=== PATIENT | male | born 1965 | race Caucasian/White ===

== ENCOUNTER 2017-01-12 14:31 | Inpatient (IN) ==
[2017-01-12] MEDS ORDERED: 0.9 % Sodium Chloride 1,000 ML IVC ONE (15:06)
[2017-01-12] MEDS ORDERED: *HR* Morphine 2 MG/ML SYRINGE IVP ONE (15:06)
[2017-01-12] MEDS ORDERED: Ondansetron 4 MG/2 ML VIAL IVP ONE (15:06)
[2017-01-12 15:27] LABS: Basophils # 0.1 K/mcL (0.0-0.2); Basophils % 0.3 %; Eosinophils % 0.1 %; Hematocrit 34.3 % (37.5-50.1); Hemoglobin 11.4 g/dL (12.9-16.9); Immature Granulocytes % 0.4 % (0-4); Lymphocytes # 1.6 K/mcL (0.6-4.6); Lymphocytes % 7.1 %; Mean Corpuscular HGB Conc 33.2 g/dL (31.6-35.5); Mean Corpuscular Hemoglobin 29.4 pg (28.0-33.3); Mean Corpuscular Volume 88.4 fL (83.0-100.0); Mean Platelet Volume 8.6 fL (9.4-12.4); Monocytes # 1.4 K/mcL (0.0-1.3); Monocytes % 6.1 %; Neutrophils # 19.4 K/mcL (1.6-8.9); Platelet Count 479 K/mcL (140-400); Red Blood Count 3.88 M/mcL (4.19-5.50); Red Cell Distribution Width 13.5 % (11.5-14.5)
[2017-01-12 15:36] LABS: Alanine Aminotransferase 10 Units/L (0-55); Albumin 2.4 g/dL (3.5-5.0); Albumin/Globulin Ratio 0.4 (1.1-2.2); Alkaline Phosphatase 94 Units/L (38-126); Aspartate Amino Transferase 20 Units/L (5-34); BUN/Creatinine Ratio 8 (6-26); Bilirubin,Direct 0.3 mg/dL (0.0-0.5); Bilirubin,Indirect 0.1 mg/dL (0.0-1.2); Bilirubin,Total 0.4 mg/dL (0.2-1.2); Blood Urea Nitrogen 6 mg/dL (8-26); Calcium 8.8 mg/dL (8.6-10.8); Carbon Dioxide 26 mEq/L (19-29); Chloride 97 mEq/L (98-109); Globulin 5.4 g/dL (2.4-3.5); Glucose 96 mg/dL (70-99); Osmolality,Calculated 269 (280-300); Potassium 3.8 mEq/L (3.5-4.5); Sodium 131 mEq/L (136-145); Total Protein 7.8 g/dL (6.0-8.3); eGFR For African Americans > 60 (> 60); eGFR For Non-African Americans > 60 (> 60)
[2017-01-12 15:45] LABS: Lipase < 10 Units/L (8-78)
[2017-01-12] MEDS ORDERED: Azithromycin 500 MG in D5% in Water 250 ML IVPB ONE (15:49)
--- NOTE | 2017-01-12 15:49 | Emergency Department Note ---
Disposition Clinical Impression: Community acquired pneumonia Sepsis Qualifiers: Sepsis type: sepsis due to unspecified organism Qualified Code(s): A41.9 - Sepsis, unspecified organism Disposition: Admitted As Inpatient Condition: Good Time of Disposition: 16:00 Abdominal Pain HPI - General Chief Complaint: ED Abdominal Pain Stated Complaint: ABD Pain Time Seen by Provider: 01/12/17 14:51 Source: patient, family Mode of arrival: ambulatory Limitations: no limitations Nursing Notes Reviewed: Yes Vital Signs Reviewed: Yes - History of Present Illness HPI Narrative: 51-year-old male presents with concerns of right lateral chest pain and right upper quadrant abdominal pain. Patient states his symptoms have progressively worsened over the past 3 days. No history of similar pain. Family is concerned the patient became increasingly fatigued over the past 2-3 hours prior to arrival. He had a headache with nausea and vomiting yesterday however he has not had vomiting today. Denied bloody or bilious emesis at that time. No diarrhea or hematochezia or melena. No recent trauma. Pain Scale: 10 - Related Data Home Medications Medication Instructions Recorded Confirmed No Known Home Drugs 09/15/15 01/12/17 Allergies Allergy/AdvReac Type Severity Reaction Status Date / Time No Known Allergies Allergy Verified 01/12/17 14:46 All systems ED: reviewed and negative except as stated. Constitutional: Denies: fever, chills, weakness Cardiovascular: Reports: chest pain. Denies: palpitations Respiratory: Reports: cough, dyspnea. Denies: wheezes Gastrointestinal: Reports: abdominal pain, nausea, vomiting. Denies: diarrhea, constipation, hematemesis Abdominal Pain PMH - Past Medical History Medical history: Reports: no medical history Male Surgical History: Reports: orthopedic, other Psychiatric history: Reports: no psych history - Social History Smoking status: Current every day smoker Alcohol use: Reports: none Drug use: Reports: none Physical Exam General: Alert and in no acute distress Skin: Warm, dry, intact Head: Normocephalic and atraumatic Neck: Supple, trachea midline and no tenderness Cardiovascular: Tachycardic, no murmur, normal perfusion Respiratory: Mild rhonchi in the right lower lobes. 2. Musculoskeletal: Normal strength, tenderness to palpation of the right lateral chest as well as the right upper quadrant of the abdomen. GI: Soft, nontender, nondistended. Bowel sounds present Neuro: A&O to person, place, time and situation. No focal deficits noted on exam Psychiatric: cooperative and appropriate mood and affect. - General Limitations: no limitations General appearance: alert Course Vital Signs Temperature 98.8 F 01/12/17 14:44 Pulse Rate 122 01/12/17 14:44 Respiratory Rate 20 01/12/17 14:44 Blood Pressure 152/105 01/12/17 14:44 O2 Sat by Pulse Oximetry 97 01/12/17 14:44 Temperature 98 F 01/12/17 20:04 Pulse Rate 100 01/12/17 20:04 Respiratory Rate 32 01/12/17 20:04 Blood Pressure 138/95 01/12/17 20:04 O2 Sat by Pulse Oximetry 95 01/12/17 20:04 Oxygen Delivery Oxygen Delivery Room Air Abdominal Pain - Medical Records Medical records reviewed: Yes I reviewed the patient's medical records. - Lab Data Lab results reviewed: Yes I reviewed the patient's lab results. Result diagrams: 01/12/17 18:55 01/12/17 15:09 Lab Results 01/12/17 01/12/17 01/12/17 Range/Units 15:09 15:09 15:09 WBC 22.6 H (4.3-11.1) K/mcL RBC 3.88 L (4.19-5.50) M/mcL Hgb 11.4 L (12.9-16.9) g/dL Hct 34.3 L (37.5-50.1) % MCV 88.4 (83.0-100.0) fL MCH 29.4 (28.0-33.3) pg MCHC 33.2 (31.6-35.5) g/dL RDW 13.5 (11.5-14.5) % Plt Count 479 H (140-400) K/mcL MPV 8.6 L (9.4-12.4) fL Immature Gran % 0.4 (0-4) % Seg Neutrophils % 86.0 % Lymphocytes % 7.1 % Monocytes % 6.1 % Eosinophils % 0.1 % Basophils % 0.3 % Neutrophils # 19.4 H (1.6-8.9) K/mcL Lymphocytes # 1.6 (0.6-4.6) K/mcL Monocytes # 1.4 H (0.0-1.3) K/mcL Eosinophils # 0.0 (0.0-0.6) K/mcL Basophils # 0.1 (0.0-0.2) K/mcL PT (9.4-12.1) Seconds INR APTT (26.0-36.0) Seconds Sodium (136-145) mEq/L Potassium (3.5-4.5) mEq/L Chloride (98-109) mEq/L Carbon Dioxide (19-29) mEq/L BUN (8-26) mg/dL Creatinine (0.72-1.25) mg/dL Est GFR ( Amer) (> 60) Est GFR (Non-Af Amer) (> 60) BUN/Creatinine Ratio (6-26) Glucose (70-99) mg/dL Calculated Osmolality (280-300) Lactic Acid 1.0 (0.5-2.2) mmol/L Calcium (8.6-10.8) mg/dL Phosphorus (2.3-4.7) mg/dL Magnesium (1.6-2.6) mg/dL Total Bilirubin (0.2-1.2) mg/dL Direct Bilirubin (0.0-0.5) mg/dL Indirect Bilirubin (0.0-1.2) mg/dL AST (5-34) Units/L ALT (0-55) Units/L Alkaline Phosphatase (38-126) Units/L Troponin I 0.00 (0-0.03) ng/mL Serum Total Protein (6.0-8.3) g/dL Albumin (3.5-5.0) g/dL Globulin (2.4-3.5) g/dL Albumin/Globulin Ratio (1.1-2.2) Lipase (8-78) Units/L Hepatitis A IgM Ab (Nonreactive) Hep Bs Antigen (Nonreactive) Hep B Core IgM Ab (Nonreactive) Hepatitis C Ab Screen (Nonreactive) 01/12/17 01/12/17 01/12/17 Range/Units 15:09 15:09 16:15 WBC (4.3-11.1) K/mcL RBC (4.19-5.50) M/mcL Hgb (12.9-16.9) g/dL Hct (37.5-50.1) % MCV (83.0-100.0) fL MCH (28.0-33.3) pg MCHC (31.6-35.5) g/dL RDW (11.5-14.5) % Plt Count (140-400) K/mcL MPV (9.4-12.4) fL Immature Gran % (0-4) % Seg Neutrophils % % Lymphocytes % % Monocytes % % Eosinophils % % Basophils % % Neutrophils # (1.6-8.9) K/mcL Lymphocytes # (0.6-4.6) K/mcL Monocytes # (0.0-1.3) K/mcL Eosinophils # (0.0-0.6) K/mcL Basophils # (0.0-0.2) K/mcL PT 13.9 H (9.4-12.1) Seconds INR 1.3 APTT 30.3 (26.0-36.0) Seconds Sodium 131 L (136-145) mEq/L Potassium 3.8 (3.5-4.5) mEq/L Chloride 97 L (98-109) mEq/L Carbon Dioxide 26 (19-29) mEq/L BUN 6 L (8-26) mg/dL Creatinine 0.72 (0.72-1.25) mg/dL Est GFR ( Amer) > 60 (> 60) Est GFR (Non-Af Amer) > 60 (> 60) BUN/Creatinine Ratio 8 (6-26) Glucose 96 (70-99) mg/dL Calculated Osmolality 269 L (280-300) Lactic Acid (0.5-2.2) mmol/L Calcium 8.8 (8.6-10.8) mg/dL Phosphorus (2.3-4.7) mg/dL Magnesium (1.6-2.6) mg/dL Total Bilirubin 0.4 (0.2-1.2) mg/dL Direct Bilirubin 0.3 (0.0-0.5) mg/dL Indirect Bilirubin 0.1 (0.0-1.2) mg/dL AST 20 (5-34) Units/L ALT 10 (0-55) Units/L Alkaline Phosphatase 94 (38-126) Units/L Troponin I (0-0.03) ng/mL Serum Total Protein 7.8 (6.0-8.3) g/dL Albumin 2.4 L (3.5-5.0) g/dL Globulin 5.4 H (2.4-3.5) g/dL Albumin/Globulin Ratio 0.4 L (1.1-2.2) Lipase < 10 (8-78) Units/L Hepatitis A IgM Ab Nonreactive (Nonreactive) Hep Bs Antigen Nonreactive (Nonreactive) Hep B Core IgM Ab Nonreactive (Nonreactive) Hepatitis C Ab Screen Nonreactive (Nonreactive) 01/12/17 01/12/17 Range/Units 16:24 16:24 WBC (4.3-11.1) K/mcL RBC (4.19-5.50) M/mcL Hgb (12.9-16.9) g/dL Hct (37.5-50.1) % MCV (83.0-100.0) fL MCH (28.0-33.3) pg MCHC (31.6-35.5) g/dL RDW (11.5-14.5) % Plt Count (140-400) K/mcL MPV (9.4-12.4) fL Immature Gran % (0-4) % Seg Neutrophils % % Lymphocytes % % Monocytes % % Eosinophils % % Basophils % % Neutrophils # (1.6-8.9) K/mcL Lymphocytes # (0.6-4.6) K/mcL Monocytes # (0.0-1.3) K/mcL Eosinophils # (0.0-0.6) K/mcL Basophils # (0.0-0.2) K/mcL PT (9.4-12.1) Seconds INR APTT (26.0-36.0) Seconds Sodium (136-145) mEq/L Potassium (3.5-4.5) mEq/L Chloride (98-109) mEq/L Carbon Dioxide (19-29) mEq/L BUN (8-26) mg/dL Creatinine (0.72-1.25) mg/dL Est GFR ( Amer) (> 60) Est GFR (Non-Af Amer) (> 60) BUN/Creatinine Ratio (6-26) Glucose (70-99) mg/dL Calculated Osmolality (280-300) Lactic Acid 0.8 (0.5-2.2) mmol/L Calcium (8.6-10.8) mg/dL Phosphorus 3.2 (2.3-4.7) mg/dL Magnesium 1.5 L (1.6-2.6) mg/dL Total Bilirubin (0.2-1.2) mg/dL Direct Bilirubin (0.0-0.5) mg/dL Indirect Bilirubin (0.0-1.2) mg/dL AST (5-34) Units/L ALT (0-55) Units/L Alkaline Phosphatase (38-126) Units/L Troponin I (0-0.03) ng/mL Serum Total Protein (6.0-8.3) g/dL Albumin (3.5-5.0) g/dL Globulin (2.4-3.5) g/dL Albumin/Globulin Ratio (1.1-2.2) Lipase (8-78) Units/L Hepatitis A IgM Ab (Nonreactive) Hep Bs Antigen (Nonreactive) Hep B Core IgM Ab (Nonreactive) Hepatitis C Ab Screen (Nonreactive) - Radiology Data Radiology results reviewed: Yes I reviewed the patient's radiology results. - EKG Data EKG attestation: Yes I reviewed and interpreted this EKG. EKG results narrative: ECG - interpreted by ED physician. Rate 104 sinus tachycardia, no STEMI Critical Care Time Critical Care Time: Yes Total Critical Care Time: 36 Attestation: The high probability of a clinically significant, sudden or life threatening deterioration of the cardiovascular and respiratory system(s) required my full and direct attention, intervention and personal management. The aggregate critical care time was 36 minutes. This time is in addition to time spent performing reported procedures but includes the following: x Data Review and interpretation x Patient assessment and monitoring of vital signs x Documentation x Medication orders and management
[2017-01-12] MEDS: 0.9 % Sodium Chloride 1,000 ML IVC SCH ×3 (16:20→18:21)
[2017-01-12] MEDS ORDERED: Naloxone 0.4 MG/ML INJ IVP PRN (16:37)
[2017-01-12] MEDS ORDERED: Acetaminophen 325 MG TABLET PO PRN (16:37)
[2017-01-12] MEDS ORDERED: Ondansetron 4 MG/2 ML VIAL IVP PRN (16:37)
[2017-01-12] MEDS ORDERED: *HR* Morphine 2 MG/ML SYRINGE IVP PRN (16:37)
[2017-01-12 16:45] LABS: Magnesium 1.5 mg/dL (1.6-2.6); Phosphorous 3.2 mg/dL (2.3-4.7)
--- NOTE | 2017-01-12 17:06 | Internal Med History&Physical ---
<aCchorro Sullivan - Last Filed: 01/12/17 17:50> Date of Encounter: 01/12/17 Time of Encounter: 16:00 Assessment and Plan (1) Sepsis Current visit: Yes Status: Acute Patient presents with sepsis. His WBC is 22.6 on initial labs and HR is tachycardic at 120 bpm. 2L IV fluids administered in the ED with continuation at 125 mL/HR. Blood/sputum/urine cultures ordered stat. Legionella/strep pneumoniae urine antigens ordered stat. Timed lactic acids ordered (initial lactic acid is 1.0). Stat INR and APTT ordered. Continuous cardiac telemetry and supplemental O2 with continuous SpO2 monitoring ordered. Patient's current oral temp is 98.8, however patient's abdomen is very warm and tender on examination. Rectal temp ordered. Follow-up labs ordered and patient is to be monitored closely for signs of increased infection or cardiac/respiratory decline or distress. Qualifiers: Sepsis type: sepsis due to unspecified organism Qualified Code(s): A41.9 - Sepsis, unspecified organism (2) Community acquired pneumonia Current visit: Yes Status: Acute Patient presents with suspected community acquired pneumonia. 2-View CXR of the chest dated today shows bilateral lower lobe airspace opacifications with a possible right-sided pleural effusion or pleural thickening. Multi-lobar pneumonia could give this appearance. A malignancy also needs to be considered. Blood/sputum/urine cultures ordered. Will continue IV ceftriaxone and azithromycin for infection coverage. Will monitor follow-up labs for infection resolution. (3) SOB (shortness of breath) Current visit: Yes Status: Acute Patient presents with dyspnea and tachypnea related to his current pain and infection status. Supplemental O2 with titration if SpO2 <92% and continuous SpO2 monitoring ordered. DuoNebs ordered Q4. Patient to be falls precautions/up with assist/bed rest with bathroom privileges with assist only due to current SOB and weakness. Will monitor patient and vital signs. (4) Abdominal pain Current visit: Yes Status: Acute Patient presents with abdominal pain in RUQ that he states has been occurring for the past three days but became worse over the past 24 hours. RUQ is tender and warm on examination. Stat CT of the abdomen/pelvis ordered. LFTs within normal range. Hepatitis panel ordered. Qualifiers: Abdominal location: right upper quadrant Qualified Code(s): R10.11 - Right upper quadrant pain (5) Nausea & vomiting Current visit: Yes Status: Acute Patient reports episodic vomiting over the past 24 hours that is cyclical and non-intractable. He appears dehydrated on examination. IV Zofran PRN and IV Protonix 40 mg daily ordered. NPO diet for now. Will advance diet as tolerated. IV NS 0.9 125 mL/HR ordered following 2L of NS administered in the ED. Electrolyte protocol ordered. Qualifiers: Vomiting type: cyclical vomiting Vomiting Intractability: non-intractable Qualified Code(s): G43.A0 - Cyclical vomiting, not intractable (6) Cough Current visit: Yes Status: Acute Patient presents with acute cough that he states has become worse over the past three days. He reports cough produces yellow sputum. Sputum culture ordered. DuoNebs Q4 ordered. (7) DVT prophylaxis Current visit: Yes Status: Acute Patient to be placed on DVT prophylaxis due to admission protocol and current bed rest status. Heparin 5,000 units SQ Q8 ordered. Internal Medicine - H&P: HPI Chief complaint: Abdominal pain Admitted From: Emergency Dept Plans for Post Hospital Care: Home History of present illness: Mr. Cm is a 51 year old male who presents from the ED with chief complaint of abdominal pain. Upon admission, patient is currently septic with WBC of 22.6 and HR of 122. Current RR is 20 and temp is 98.8. Will obtain a rectal temp as the patient's abdomen is very hot. Patient reports the right- sided pain began three days ago and became worse yesterday evening and he also reports several episodes of vomiting. He also has a cough that he says produces yellow sputum. He denies any unusual bleeding in stool, urine, or emesis. He denies any recent trauma but reports that he has chronic back pain related to jumping off of bridges and out of second-story windows in the past. Patient currently denies any medical history. He does state that he currently smokes 1 PPD. 2-View CXR dated today shows bilateral lower lobe airspace opacifications with a possible right-sided pleural effusion or pleural thickening. Multi-lobar pneumonia could give this appearance. A malignancy also needs to be considered. Patient is at high risk for cardiac and respiratory failure due to sepsis and will be admitted as inpatient with orders for stat blood cultures x2, stat sputum culture, stat urine culture, timed lactic acids, stat INR and APTT, continous cardiac telemetry due to current tachycardia, supplemental O2 with continuous SpO2 monitoring, IV fluids 0.9 NS 125 mL/HR after two L of IV fluids administered in the ED, stat CT of the abdomen as well as hepatitis panel, and rectal temp. We will continue IV ceftriaxone and azithromycin. Follow-up labs ordered. Patient to be monitored closely. Time spent with patient >40 minutes. Past Med Surg Social Fam HX - Past Medical History Source: patient Medical history: no medical history Psychiatric history: no psych history - Past Surgical History Surgical History: orthopedic, other (Right hand, back surgery) - Social History Smoking Status: Current every day smoker Packs per day: 1 PPD Smokeless Tobacco Status: No Alcohol use: none Drug use: none Current living situation: Home, With Family Activity Level: Independent ambulation Recent Out of Country Travel Within the Last 8 Weeks: No Exposure or Possible Exposure to Illness During Travel: No Internal Medicine - H&P: Meds No Known Home Drugs 09/15/15 [History] Allergies No Known Allergies Allergy (Verified 01/12/17 14:46) All Systems PM: A 10-system review of systems was performed and is negative for pertinent findings except as documented above in the HPI. - Constitutional Constitutional: as per HPI, chills, fatigue, weakness - EENT Eyes: no change in vision, no discharge, no pain, no photophobia Ears: no ear discharge, no ear pain, no tinnitus Nose, mouth and throat: no dysphagia, no nasal discharge, no neck pain, no sore throat - Breasts Breasts: as per HPI - Cardiovascular Cardiovascular ROS IM: as per HPI, dyspnea, dyspnea on exertion, other ( Tachycardia (HR of 120 bpm)) - Respiratory Respiratory: as per HPI, cough, dyspnea, chest congestion, change in phlegm color (Yellow) - Gastrointestinal Gastrointestinal: as per HPI, abdominal pain (RUQ that is warm to the touch ), nausea, vomiting - Genitourinary Genitourinary ROS male: as per HPI - Musculoskeletal Musculoskeletal ROS IM: as per HPI, back pain, no numbness, no tingling - Integumentary Integumentary IM: no rash, no unusual bruising - Neurological Neurological ROS: no confusion, no convulsions, no focal weakness, no numbness, no tingling, no tremor(s) - Psychiatric Psychiatric: as per HPI - Endocrine Endocrine IM: as per HPI - Hematologic/Lymphatic Hematologic/Lymphatic: no easy bruising - Allergic/Immunologic Allergic/Immunologic: as per HPI - Constitutional Vitals: Temp Pulse Resp BP Pulse Ox 98.8 F 122 16 125/87 96 01/12/17 14:44 01/12/17 14:44 01/12/17 16:24 01/12/17 16:24 01/12/17 15:44 General appearance: Present: cooperative, A&O X 3, severe distress, underweight , answers questions appropriately - Head Head exam: Present: atraumatic, normocephalic - Eye Eye exam: Present: PERRL, conjuntiva pink, sclera anicteric Pupils: Present: PERRL - ENT ENT exam: Present: mucous membranes dry, normal exam, normal external ear exam - Neck Neck exam general surgery: Present: normal inspection, supple, trachea midline. Absent: lymphadenopathy - Respiratory Respiratory exam: Present: decreased breath sounds, tachypnea - Cardiovascular Cardiovascular exam: Present: RRR, +S1, +S2. Absent: diastolic murmur, gallop, rubs, systolic murmur - GI/Abdominal GI/Abdominal exam: Present: guarding (RUQ), tenderness - Rectal Rectal exam: Present: deferred - Additional comments: exam deferred. - Extremities Exam Extremities exam: Present: warm, radial pulses palpable and symetrical. Absent : calf tenderness, cyanotic, pedal edema - Back Exam Back exam: Present: normal inspection - Neurological Exam Neurological exam: Present: CN II-XII intact, oriented X3, no focal deficits. Absent: pronater drift, facial droop, speech deficit - Psychiatric Psychiatric exam: Present: anxious - Skin Skin exam: Present: dry, intact Internal Med - H&P Results - Labs CBC & Chem 7: 01/12/17 15:09 01/12/17 15:09 - EKG Data EKG shows normal: sinus rhythm Rate: tachycardia - EKG Data Prior EKG available for review: no EKG comments: 01/12/17 17:14 EKG dated 01/12/17 shows sinus tachycardia with short WI interval, possible left atrial enlargement, borderline right axis deviation, incomplete right bundle branch block. - Diagnostic Studies Chest x-ray Additional comments: Impressions Chest X-Ray 01/12/17 15:09 IMPRESSION: Bilateral lower lobe airspace opacifications with a possible right-sided pleural effusion or pleural thickening. Multi lobar pneumonia could give this appearance. A malignancy also needs to be considered D/ / Sourav Martins MD / Sourav Martins MD Interpreting Provider: Sourav Martins MD <Virgilio Gandhi - Last Filed: 01/12/17 19:59> Date of Encounter: 01/12/17 Internal Medicine - H&P: HPI History of present illness: Mr. Cm is a 51 year old male All Systems PM: A 10-system review of systems was performed and is negative for pertinent findings except as documented above in the HPI. - Constitutional Vitals: Temp Pulse Resp BP Pulse Ox 98.6 F 105 18 134/94 96 01/12/17 18:16 01/12/17 18:16 01/12/17 19:00 01/12/17 18:16 01/12/17 18:16 Internal Med - H&P Results - Labs CBC & Chem 7: 01/12/17 18:55 01/12/17 15:09 Labs: Short CBC 01/12/17 Range/Units 18:55 WBC 23.9 H (4.3-11.1) K/mcL Hgb 11.6 L (12.9-16.9) g/dL Hct 35.6 L (37.5-50.1) % Plt Count 489 H (140-400) K/mcL Neutrophils # 20.5 H (1.6-8.9) K/mcL Urine 01/12/17 Range/Units 18:22 Urine Color Yellow (Yellow) Urine Clarity Clear (Clear) Urine pH 7.0 (5.0-8.0) pH Units Ur Specific [place] 1.013 (1.010-1.025) Urine Protein Negative (Neg-Trace) mg/dL Urine Glucose (UA) Normal (Normal) mg/dL - ABG Interpretation ABG results: 01/12/17 17:43 ABG pH 7.42 ABG pCO2 43 ABG pO2 67 L ABG HCO3 27.9 H ABG Total CO2 29.2 H ABG O2 Saturation 93 L ABG Base Excess 3.0 - Attending Attestation I have seen and examined the patient at around 17:30. I discussed about the patient with Cachorro Sullivan NP. I have reviewed the orders and the note. Patient is a 51-year-old male with no significant past medical history. He presents to the ED with complaints of cough, shortness of breath and abdominal pain. Patient states this and gone on for several days. He denies chest pain denies palpitations denies headache or lightheadedness. Denies vomiting or diarrhea. Patient states he has been coughing up yellowish colored sputum. Patient states he smokes about a pack and half cigarettes a day and has been smoking for many years. He states he does not take any medications at home. Initial evaluation revealed probable multilobar pneumonia and will need further evaluation for possible lower extremity DVT. On examination patient is awake and alert. Not in any distress. He is cachectic and ill-appearing. He is able to provide history. No family members at bedside. Patient is being admitted for sepsis due to community-acquired pneumonia and possible DVT of lower extremity and loculated pleural effusion. Suspicion for malignancy is high. Patient has been explained about his guarded condition and plan of care. Understood and agreed. No unanswered questions. CODE STATUS full code. Heart rate 105, blood pressure 125/87, O2 sat 96% on 2 L, heart S1-S2 positive without tachycardia no murmurs, lungs bilateral good air entry with bilateral rhonchi, abdomen soft mild epigastric and periumbilical tenderness, no guarding. Extremities all pulses strong and regular no edema. General exam patient is ill-appearing and cachectic and disheveled and seems very frail.
[2017-01-12 17:19] LABS: INR 1.3; Prothrombin Time 13.9 Seconds (9.4-12.1)
[2017-01-12 17:22] LABS: Activated Partial Thrombo Time 30.3 Seconds (26.0-36.0)
[2017-01-12 17:54] LABS: ABG HCO3 27.9 mEQ/L (21-27); ABG Oxygen Saturation 93 % (95-98); ABG PCO2 43 mmHg (35-45); ABG PH 7.42 pH Units (7.32-7.45); ABG PO2 67 mmHg (85-104); ABG TCO2 29.2 mEq/L (20-26)
[2017-01-12 17:55] LABS: Blood Gas FiO2 21 %
[2017-01-12] MEDS: Nicotine 21 MG PATCH.TD24 TD SCH (18:22)
[2017-01-12 18:37] LABS: Bilirubin,Urine Negative (Negative); Blood,Urine Small (Negative); Clarity,Urine Clear (Clear); Color,Urine Yellow (Yellow); Glucose,Urine (UA) Normal (Normal); Ketones,Urine Negative (Negative); Leukocyte Esterase,Urine Negative (Negative); Nitrite,Urine Negative (Negative); Protein,Urine Negative (Neg-Trace); Specific Gravity,Urine 1.013 (1.010-1.025); Urobilinogen,Urine Normal (Normal)
[2017-01-12 18:39] LABS: Bacteria,Urine None Seen per hpf (None-Few); Hyaline Casts,Urine None Seen per lpf (None-Few); RBC,Urine 0-3 per hpf (0-3); Squamous Epithelial Cell,Urine None Seen per lpf (None-Few); WBC,Urine 0-3 per hpf (0-3)
[2017-01-12 18:49] LABS: Uric Acid Crystals,Urine Present
[2017-01-12 18:51] LABS: Hepatitis A Antibody IgM Nonreactive (Nonreactive); Hepatitis B Core IgM Nonreactive (Nonreactive); Hepatitis B Surface Antigen Nonreactive (Nonreactive); Hepatitis C Virus Antibody Nonreactive (Nonreactive)
[2017-01-12 19:23] LABS: Basophils # 0.1 K/mcL (0.0-0.2); Basophils % 0.3 %; Hematocrit 35.6 % (37.5-50.1); Hemoglobin 11.6 g/dL (12.9-16.9); Immature Granulocytes % 0.5 % (0-4); Lymphocytes # 1.9 K/mcL (0.6-4.6); Lymphocytes % 7.9 %; Mean Corpuscular HGB Conc 32.6 g/dL (31.6-35.5); Mean Corpuscular Hemoglobin 29.7 pg (28.0-33.3); Mean Corpuscular Volume 91.3 fL (83.0-100.0); Monocytes # 1.4 K/mcL (0.0-1.3); Monocytes % 5.8 %; Neutrophils # 20.5 K/mcL (1.6-8.9); Platelet Count 489 K/mcL (140-400); Red Cell Distribution Width 13.6 % (11.5-14.5); Segmented Neutrophils % 85.5 %
[2017-01-12] MEDS: Ipratropium/Albuterol Neb 3 ML IH SCH (19:59)
[2017-01-12] MEDS: *HR* HYDROcodone/Acet 5/325 mg TABLET PO PRN (21:58)
[2017-01-12 23:17] LABS: Amphetamine Screen,Urine Negative ng/mL (Cutoff=1000); Barbiturate Screen,Urine Negative ng/mL (Cutoff=200); Benzodiazepines Screen,Urine Negative ng/mL (Cutoff=200); Cannabinoid Screen,Urine Negative ng/mL (Cutoff = 50); Cocaine Screen,Urine Negative ng/mL (Cutoff= 300); Opiate Screen,Urine Positive ng/mL (Cutoff=300); Phencyclidine Screen,Urine Negative ng/mL (Cutoff=25)
[2017-01-13] MEDS: Ipratropium/Albuterol Neb 3 ML IH SCH ×7 (00:18→23:47)
[2017-01-13] MEDS: 0.9 % Sodium Chloride 1,000 ML IVC SCH ×2 (04:23→13:46)
[2017-01-13] MEDS: *HR* HYDROcodone/Acet 5/325 mg TABLET PO PRN (04:29)
[2017-01-13 06:33] LABS: Basophils # 0.1 K/mcL (0.0-0.2); Basophils % 0.3 %; Eosinophils # 0.1 K/mcL (0.0-0.6); Eosinophils % 0.6 %; Hemoglobin 10.5 g/dL (12.9-16.9); Immature Granulocytes % 0.5 % (0-4); Lymphocytes # 1.9 K/mcL (0.6-4.6); Lymphocytes % 8.7 %; Mean Corpuscular HGB Conc 32.8 g/dL (31.6-35.5); Mean Corpuscular Volume 88.4 fL (83.0-100.0); Mean Platelet Volume 8.8 fL (9.4-12.4); Monocytes # 1.6 K/mcL (0.0-1.3); Monocytes % 7.7 %; Neutrophils # 17.4 K/mcL (1.6-8.9); Platelet Count 464 K/mcL (140-400); Red Blood Count 3.62 M/mcL (4.19-5.50); Red Cell Distribution Width 13.5 % (11.5-14.5); Segmented Neutrophils % 82.2 %
[2017-01-13 06:39] LABS: BUN/Creatinine Ratio 6 (6-26); Calcium 7.9 mg/dL (8.6-10.8); Carbon Dioxide 26 mEq/L (19-29); Chloride 100 mEq/L (98-109); Glucose 107 mg/dL (70-99); Osmolality,Calculated 269 (280-300); Potassium 3.1 mEq/L (3.5-4.5); Sodium 131 mEq/L (136-145); eGFR For African Americans > 60 (> 60); eGFR For Non-African Americans > 60 (> 60)
[2017-01-13 06:42] LABS: Blood Urea Nitrogen 4 mg/dL (8-26)
--- NOTE | 2017-01-13 09:21 | Internal Med Progress Note ---
Addendum entered and electronically signed by Nathen Meyer DO 01/13/17 10:04: PLEASE DISREGARD THIS NOTE. INFORMATION IN THIS NOTE IS INCORRECT AND REFERS TO A DIFFERENT PATIENT. REFER TO SUBSEQUENT PROGRESS NOTE FOR THIS PATIENT'S INFORMATION. Original Note: <Nathen Meyer - Last Filed: 01/13/17 09:18> Date of Encounter: 01/13/17 Time of Encounter: 08:30 - Assessment and plan (1) SOB (shortness of breath) Current Visit: Yes Status: Acute Assessment and plan: Patient states that his shortness of breath is improved. He states that Robitussin has been effective in reducing his cough. No findings on physical exam suggestive of respiratory distress or pneumonia. Chest x-ray showed no consolidation or any other signs of pneumonia. Patient will continue CPAP. (2) Cough Current Visit: Yes Status: Acute Assessment and plan: Continue Robitussin. Patient denies having a cough this morning. (3) Sepsis Current Visit: Yes Status: Acute Assessment and plan: We will obtain another blood culture. Continue antibiotics. Qualifiers: Sepsis type: sepsis due to unspecified organism Qualified Code(s): A41.9 - Sepsis, unspecified organism - Subjective Interval history: Patient was seen and examined at bedside this morning. He states that his cough and shortness of breath have both improved, but the he still feels pain in his neck. He was given Robitussin last night, he states that it was very helpful. He still feeling tenderness on the left side of his neck, although the pain in his hamstrings he feels somewhat improved. He currently denies having any fever, chills, nausea, and vomiting, or diarrhea. - Constitutional Vitals: Temp Pulse Resp BP Pulse Ox 98.9 F 93 16 127/76 95 01/13/17 07:21 01/13/17 07:21 01/13/17 08:19 01/13/17 07:21 01/13/17 08:19 General appearance: Present: cooperative, A&O X 3, severe distress, underweight , answers questions appropriately - Neck Neck exam general surgery: Present: tenderness (Patient has pain on the left side of his neck, which is restricting his full range of motion.), supple, trachea midline. Absent: full ROM, lymphadenopathy - Expanded Neck Exam Neck exam: Present: tenderness - Respiratory Respiratory exam: Present: CTAB. Absent: accessory muscle use, rales, rhonchi, wheezes - Cardiovascular Cardiovascular exam: Present: RRR, +S1, +S2. Absent: diastolic murmur, gallop, rubs, systolic murmur Internal Medicine: Result - Labs CBC & Chem 7: 01/13/17 06:06 01/13/17 06:06 Labs: Short CBC 01/12/17 01/13/17 Range/Units 18:55 06:06 WBC 23.9 H 21.2 H (4.3-11.1) K/mcL Hgb 11.6 L 10.5 L (12.9-16.9) g/dL Hct 35.6 L 32.0 L (37.5-50.1) % Plt Count 489 H 464 H (140-400) K/mcL Neutrophils # 20.5 H 17.4 H (1.6-8.9) K/mcL BMP 01/13/17 06:06 Sodium 131 L Potassium 3.1 L Chloride 100 Carbon Dioxide 26 BUN 4 L Creatinine 0.63 L Glucose 107 H Calcium 7.9 L Urine 01/12/17 Range/Units 18:22 Urine Color Yellow (Yellow) Urine Clarity Clear (Clear) Urine pH 7.0 (5.0-8.0) pH Units Ur Specific Dierks 1.013 (1.010-1.025) Urine Protein Negative (Neg-Trace) mg/dL Urine Glucose (UA) Normal (Normal) mg/dL - ABG Interpretation ABG results: ABG ABG pH 7.42 pH Units (7.32-7.45) 01/12/17 17:43 ABG pCO2 43 mmHg (35-45) 01/12/17 17:43 ABG pO2 67 mmHg (85-104) L 01/12/17 17:43 ABG O2 Saturation 93 % (95-98) L 01/12/17 17:43 PT/INR, D-dimer PT 13.9 Seconds (9.4-12.1) H 01/12/17 16:15 - Impressions Impressions Chest CT 01/12/17 19:52 IMPRESSION: 1. Large areas of bilateral lower lobe consolidation with small central cystic spaces and lucencies. Findings are worrisome for multifocal pneumonia with possible pulmonary necrosis versus tiny abscesses. 2. Small to moderate loculated right pleural effusion. 3. Reactive mediastinal lymphadenopathy. 4. Age-indeterminate mild wedging of the superior endplate of the T4 vertebral body. D/ / 01/12/2017 22:25:35 Erich Foley MD / bcarter Interpreting Provider: Erich Foley MD Consult Discharge Plan - Plan Referrals: NO,PCP [Primary Care Provider] - <Bryce Delcid - Last Filed: 01/13/17 15:57> Date of Encounter: 01/13/17 - Constitutional Vitals: Temp Pulse Resp BP Pulse Ox 99.0 F 98 16 144/76 96 01/13/17 11:42 01/13/17 11:42 01/13/17 15:50 01/13/17 11:42 01/13/17 15:50 Internal Medicine: Result - Labs CBC & Chem 7: 01/13/17 06:06 01/13/17 06:06 Labs: Short CBC 01/12/17 01/13/17 Range/Units 18:55 06:06 WBC 23.9 H 21.2 H (4.3-11.1) K/mcL Hgb 11.6 L 10.5 L (12.9-16.9) g/dL Hct 35.6 L 32.0 L (37.5-50.1) % Plt Count 489 H 464 H (140-400) K/mcL Neutrophils # 20.5 H 17.4 H (1.6-8.9) K/mcL BMP 01/13/17 06:06 Sodium 131 L Potassium 3.1 L Chloride 100 Carbon Dioxide 26 BUN 4 L Creatinine 0.63 L Glucose 107 H Calcium 7.9 L Urine 01/12/17 Range/Units 18:22 Urine Color Yellow (Yellow) Urine Clarity Clear (Clear) Urine pH 7.0 (5.0-8.0) pH Units Ur Specific Dierks 1.013 (1.010-1.025) Urine Protein Negative (Neg-Trace) mg/dL Urine Glucose (UA) Normal (Normal) mg/dL - ABG Interpretation ABG results: ABG ABG pH 7.42 pH Units (7.32-7.45) 01/12/17 17:43 ABG pCO2 43 mmHg (35-45) 01/12/17 17:43 ABG pO2 67 mmHg (85-104) L 01/12/17 17:43 ABG O2 Saturation 93 % (95-98) L 01/12/17 17:43 PT/INR, D-dimer PT 13.9 Seconds (9.4-12.1) H 01/12/17 16:15 - Impressions Impressions Chest CT 01/12/17 19:52 IMPRESSION: 1. Large areas of bilateral lower lobe consolidation with small central cystic spaces and lucencies. Findings are worrisome for multifocal pneumonia with possible pulmonary necrosis versus tiny abscesses. 2. Small to moderate loculated right pleural effusion. 3. Reactive mediastinal lymphadenopathy. 4. Age-indeterminate mild wedging of the superior endplate of the T4 vertebral body. D/ / 01/12/2017 22:25:35 Erich Foley MD / bcarter Interpreting Provider: Erich Foley MD - Attending Attestation Please see above. Note for wrong patient.
[2017-01-13] MEDS: Pantoprazole 40 MG VIAL IVP SCH (09:48)
[2017-01-13] MEDS: Nicotine 21 MG PATCH.TD24 TD SCH (09:48)
--- NOTE | 2017-01-13 10:12 | Internal Med Progress Note ---
<Nathen Meyer - Last Filed: 01/13/17 10:18> Date of Encounter: 01/13/17 Time of Encounter: 08:45 - Assessment and plan (1) SOB (shortness of breath) Current Visit: Yes Status: Acute Assessment and plan: Patient denies having any shortness of breath at the moment. He still has a productive cough. This cough is one that he has had for quite some time. Continue to monitor vital signs. (2) Cough Current Visit: Yes Status: Acute Assessment and plan: Sputum culture has been obtained. Patient has had this cough for quite some time. Possibly secondary to his smoking history. (3) Sepsis Current Visit: Yes Status: Acute Assessment and plan: Patient's vital signs are currently stable. His temperature is 98.9, his pulse is 93, and his blood pressure is 127/76. Upon presentation to the hospital patient was tachycardic and had an elevated white count but no fever. Patient will be placed on broad-spectrum antibiotics. Qualifiers: Sepsis type: sepsis due to unspecified organism Qualified Code(s): A41.9 - Sepsis, unspecified organism - Subjective Interval history: This is a 51-year-old male who presented to the ED with complaints of right lateral chest pain, as well as right upper quadrant pain. This pain got worse over the course of 3 days before he presented. According to the patient's family, patient was much more fatigued than usual upon arrival to the hospital. On admission, patient had tachycardia and elevated white count. Patient was seen and examined at bedside this morning. He states that he still feels pain in the right side of his chest, especially when he takes a deep breath or coughs. He still has a productive cough, but he states that he has had this cough for quite some time. He has been producing white sputum. He denies ever having this type of pain before. However, he states that the pain in his right upper quadrant has improved. He currently denies fever, chills, nausea, vomiting, shortness of breath, or substernal pain. - Constitutional Vitals: Temp Pulse Resp BP Pulse Ox 98.9 F 93 16 127/76 95 01/13/17 07:21 01/13/17 07:21 01/13/17 08:19 01/13/17 07:21 01/13/17 08:19 General appearance: Present: cooperative, A&O X 3, severe distress, underweight , answers questions appropriately - Respiratory Respiratory exam: Present: chest wall tenderness, wheezes (Patient is taking shorter breaths on inspiration due to pain in the right side of his chest when he breathes. Expiratory wheezes bilaterally in all lung luis.). Absent: accessory muscle use, decreased breath sounds - Cardiovascular Cardiovascular exam: Present: RRR, +S1, +S2. Absent: diastolic murmur, gallop, rubs, systolic murmur Internal Medicine: Result - Labs CBC & Chem 7: 01/13/17 06:06 01/13/17 06:06 Labs: Short CBC 01/12/17 01/13/17 Range/Units 18:55 06:06 WBC 23.9 H 21.2 H (4.3-11.1) K/mcL Hgb 11.6 L 10.5 L (12.9-16.9) g/dL Hct 35.6 L 32.0 L (37.5-50.1) % Plt Count 489 H 464 H (140-400) K/mcL Neutrophils # 20.5 H 17.4 H (1.6-8.9) K/mcL BMP 01/13/17 06:06 Sodium 131 L Potassium 3.1 L Chloride 100 Carbon Dioxide 26 BUN 4 L Creatinine 0.63 L Glucose 107 H Calcium 7.9 L Urine 01/12/17 Range/Units 18:22 Urine Color Yellow (Yellow) Urine Clarity Clear (Clear) Urine pH 7.0 (5.0-8.0) pH Units Ur Specific Stewardson 1.013 (1.010-1.025) Urine Protein Negative (Neg-Trace) mg/dL Urine Glucose (UA) Normal (Normal) mg/dL - ABG Interpretation ABG results: ABG ABG pH 7.42 pH Units (7.32-7.45) 01/12/17 17:43 ABG pCO2 43 mmHg (35-45) 01/12/17 17:43 ABG pO2 67 mmHg (85-104) L 01/12/17 17:43 ABG O2 Saturation 93 % (95-98) L 01/12/17 17:43 PT/INR, D-dimer PT 13.9 Seconds (9.4-12.1) H 01/12/17 16:15 - Impressions Impressions Chest CT 01/12/17 19:52 IMPRESSION: 1. Large areas of bilateral lower lobe consolidation with small central cystic spaces and lucencies. Findings are worrisome for multifocal pneumonia with possible pulmonary necrosis versus tiny abscesses. 2. Small to moderate loculated right pleural effusion. 3. Reactive mediastinal lymphadenopathy. 4. Age-indeterminate mild wedging of the superior endplate of the T4 vertebral body. D/ / 01/12/2017 22:25:35 Erich Foley MD / [email or web address] Interpreting Provider: Erich Foley MD Consult Discharge Plan - Plan Referrals: NO,PCP [Primary Care Provider] - <Bryce Delcid - Last Filed: 01/13/17 16:31> Date of Encounter: 01/13/17 - Assessment and plan (1) Pneumonia Current Visit: Yes Status: Suspected Assessment and plan: Abx adjusted today. Follow clinically. Sputum culture. Qualifiers: Pneumonia type: due to methicillin-resistant Staphylococcus aureus (MRSA) Laterality: bilateral Lung location: lower lobe of lung Qualified Code(s): J15.212 - Pneumonia due to Methicillin resistant Staphylococcus aureus (2) Sepsis Current Visit: Yes Status: Acute Qualifiers: Sepsis type: sepsis due to unspecified organism Qualified Code(s): A41.9 - Sepsis, unspecified organism (3) Abdominal pain Current Visit: Yes Status: Acute Assessment and plan: Suspect is referred pain from pneumonia. Qualifiers: Abdominal location: right upper quadrant Qualified Code(s): R10.11 - Right upper quadrant pain (4) Hypokalemia Current Visit: Yes Status: Acute Assessment and plan: Replace and recheck. (5) Tobacco abuse Current Visit: Yes Status: Chronic (6) Anemia Current Visit: Yes Status: Chronic Assessment and plan: Follow Qualifiers: Other causes of anemia: chronic disease, other Qualified Code(s): D63.8 - Anemia in other chronic diseases classified elsewhere - Time Spent With Patient I examined this patient and my medical decision-making was reviewed with the Resident Physician on 01/13/17. I agree with the documented findings, disposition and treatment plan as described except to the extent set forth below. Mr. Cm is currently admitted for bilateral pneumonia and hypoxic resp failure. He is high risk due to potential for worsening resp status. Mr. Cm is feeling a little better today. He is still coughing a lot of sputum. No fever or chills. Some dyspnea. Denies use of narcotics and alcohol. Smokes 1ppd for 30 years. Exam Alert. Comfortable Mucus membranes dry Heart reg Lungs diminished in bases - no wheeze No edema Abd soft. Labs reviewed I/P 1. bilateral pneumonia with central necrosis - on IV abx. Get good sputum sample. May need further pulm work up. HIV ordered. 2. Positive opiate in urine - was done after Morphine given in ED. Further diagnoses and plan as above. - Constitutional Vitals: Temp Pulse Resp BP Pulse Ox 98.9 F 78 16 129/88 92 01/13/17 16:03 01/13/17 16:03 01/13/17 16:03 01/13/17 16:03 01/13/17 16:03 Internal Medicine: Result - Labs CBC & Chem 7: 01/13/17 06:06 01/13/17 06:06 Labs: Short CBC 01/12/17 01/13/17 Range/Units 18:55 06:06 WBC 23.9 H 21.2 H (4.3-11.1) K/mcL Hgb 11.6 L 10.5 L (12.9-16.9) g/dL Hct 35.6 L 32.0 L (37.5-50.1) % Plt Count 489 H 464 H (140-400) K/mcL Neutrophils # 20.5 H 17.4 H (1.6-8.9) K/mcL BMP 01/13/17 06:06 Sodium 131 L Potassium 3.1 L Chloride 100 Carbon Dioxide 26 BUN 4 L Creatinine 0.63 L Glucose 107 H Calcium 7.9 L Urine 01/12/17 Range/Units 18:22 Urine Color Yellow (Yellow) Urine Clarity Clear (Clear) Urine pH 7.0 (5.0-8.0) pH Units Ur Specific Stewardson 1.013 (1.010-1.025) Urine Protein Negative (Neg-Trace) mg/dL Urine Glucose (UA) Normal (Normal) mg/dL - ABG Interpretation ABG results: ABG ABG pH 7.42 pH Units (7.32-7.45) 01/12/17 17:43 ABG pCO2 43 mmHg (35-45) 01/12/17 17:43 ABG pO2 67 mmHg (85-104) L 01/12/17 17:43 ABG O2 Saturation 93 % (95-98) L 01/12/17 17:43 PT/INR, D-dimer PT 13.9 Seconds (9.4-12.1) H 01/12/17 16:15 - Impressions Impressions Chest CT 01/12/17 19:52 IMPRESSION: 1. Large areas of bilateral lower lobe consolidation with small central cystic spaces and lucencies. Findings are worrisome for multifocal pneumonia with possible pulmonary necrosis versus tiny abscesses. 2. Small to moderate loculated right pleural effusion. 3. Reactive mediastinal lymphadenopathy. 4. Age-indeterminate mild wedging of the superior endplate of the T4 vertebral body. D/ / 01/12/2017 22:25:35 Erich Foley MD / [email or web address] Interpreting Provider: Erich Foley MD
--- NOTE | 2017-01-13 11:47 | Venous Imaging Report ---
LE Venous Duplex Patient Name:Larry Cm Order Number:[id number] Procedure Date:01/12/2017 Date:1965Age:51 yrs Gender:Male Location:[facility] Room #: 2A24 Remote Broadcast Technician:Laura Jin RDCS Referring MD:Cachorro Sullivan CNP director hris:None Reading MD:David Quintero MD Primary Indications:DVT on CT Secondary Indications: Impressions: Normal bilateral lower extremity deep and superficial venous exam. Recommendations: Preliminary noted in pt EMR. Findings Prior Study: No prior study available for comparison. Lower Extremity Venous Duplex Side Vein Compress Spontaneous Flow Augment Diameter (cm) Depth (cm) Right Distal Iliac Normal Yes Phasic Yes Right Common Femoral Normal Yes Phasic Yes Right Superficial Femoral Normal Yes Phasic Yes Right Popliteal Normal Yes Phasic Yes Right Posterior Tibial Normal Yes Phasic Yes Right Peroneal Normal Yes Phasic Yes Right Great Saphenous Normal Yes Phasic Yes Right Lesser Saphenous Normal Yes Phasic Yes Left Distal Iliac Normal Yes Phasic Yes Left Common Femoral Normal Yes Phasic Yes Left Superficial Femoral Normal Yes Phasic Yes Left Popliteal Normal Yes Phasic Yes Left Posterior Tibial Normal Yes Phasic Yes Left Peroneal Normal Yes Phasic Yes Left Great Saphenous Normal Yes Phasic Yes Left Lesser Saphenous Normal Yes Phasic Yes Updated by David Quintero MD on 01/13/2017 11:40:25 AM electronically signed on 01/13/2017 11:41:04 AM with status of Final
[2017-01-13] MEDS: Azithromycin 500 MG in D5% in Water 250 ML IVPB SCH (17:21)
[2017-01-13] MEDS ORDERED: Sodium Chloride for inhalation 15 ML INHSOL IH ONE (17:25)
[2017-01-13 17:36] LABS: Adenovirus Not Detected (Not Detect); Bordetella Pertussis Not Detected (Not Detect); Coronavirus 229E Not Detected (Not Detect); Coronavirus HKU1 Not Detected (Not Detect); Coronavirus NL63 Not Detected (Not Detect); Coronavirus OC43 Not Detected (Not Detect); Human Metapneumovirus Not Detected (Not Detect); Human Rhinovirus/Enterovirus Not Detected (Not Detect); Influenza A Subtype 2009 H1 Not Detected (Not Detect); Influenza A Untypeable Not Detected (Not Detect); Influenza B Not Detected (Not Detect); Parainfluenza Virus 1 Not Detected (Not Detect); Parainfluenza Virus 2 Not Detected (Not Detect); Parainfluenza Virus 3 Not Detected (Not Detect); Parainfluenza Virus 4 Not Detected (Not Detect); Respiratory Syncytial Virus Not Detected (Not Detect)
[2017-01-13 17:37] LABS: Chlamydophila pneumoniae Not Detected (Not Detect); Mycoplasma pneumoniae Not Detected (Not Detect)
[2017-01-13] MEDS ORDERED: 3% Sodium Chloride Inhalation 4 ML VIAL.NEB IH ONE (18:00)
[2017-01-13] MEDS: *HR* Heparin 5,000 UNIT/ML VIAL SQ SCH (21:39)
[2017-01-14] MEDS: Ipratropium/Albuterol Neb 3 ML IH SCH ×6 (03:27→23:38)
[2017-01-14 03:52] LABS: Basophils % 0.2 %; Eosinophils % 0.1 %; Hematocrit 31.1 % (37.5-50.1); Hemoglobin 10.3 g/dL (12.9-16.9); Immature Granulocytes % 0.5 % (0-4); Lymphocytes # 1.9 K/mcL (0.6-4.6); Lymphocytes % 9.2 %; Mean Corpuscular HGB Conc 33.1 g/dL (31.6-35.5); Mean Corpuscular Hemoglobin 29.5 pg (28.0-33.3); Mean Corpuscular Volume 89.1 fL (83.0-100.0); Mean Platelet Volume 9.2 fL (9.4-12.4); Monocytes # 1.5 K/mcL (0.0-1.3); Monocytes % 7.2 %; Neutrophils # 17.5 K/mcL (1.6-8.9); Platelet Count 466 K/mcL (140-400); Red Blood Count 3.49 M/mcL (4.19-5.50); Red Cell Distribution Width 13.6 % (11.5-14.5); Segmented Neutrophils % 82.8 %
[2017-01-14 04:05] LABS: BUN/Creatinine Ratio 12 (6-26); Blood Urea Nitrogen 7 mg/dL (8-26); Calcium 8.3 mg/dL (8.6-10.8); Carbon Dioxide 27 mEq/L (19-29); Chloride 102 mEq/L (98-109); Glucose 91 mg/dL (70-99); Osmolality,Calculated 278 (280-300); Potassium 3.5 mEq/L (3.5-4.5); Sodium 135 mEq/L (136-145); eGFR For African Americans > 60 (> 60); eGFR For Non-African Americans > 60 (> 60)
[2017-01-14] MEDS: *HR* Heparin 5,000 UNIT/ML VIAL SQ SCH ×3 (05:50→23:20)
[2017-01-14] MEDS: 0.9 % Sodium Chloride 1,000 ML IVC SCH ×3 (05:51→21:30)
[2017-01-14] MEDS: Nicotine 21 MG PATCH.TD24 TD SCH (09:23)
[2017-01-14] MEDS: Pantoprazole 40 MG VIAL IVP SCH (09:23)
--- NOTE | 2017-01-14 10:46 | Internal Med Progress Note ---
<Nathen Meyer - Last Filed: 01/14/17 10:43> Date of Encounter: 01/14/17 Time of Encounter: 09:00 - Assessment and plan (1) Sepsis Current Visit: Yes Status: Acute Assessment and plan: Upon presentation to the hospital, patient was tachycardic and had an elevated white count but no fever. -Patient was placed on broad-spectrum antibiotics. -White count has decreased to 21.1, still remains high. White count was 22.6 on admission -Vital signs are all stable. Temperature is 98.7, blood pressure is 121/80, and pulse is 80. -We will continue antibiotics. Qualifiers: Sepsis type: sepsis due to unspecified organism Qualified Code(s): A41.9 - Sepsis, unspecified organism (2) Pneumonia Current Visit: Yes Status: Suspected Assessment and plan: Abx adjusted today. Follow clinically. Sputum culture. Qualifiers: Pneumonia type: due to methicillin-resistant Staphylococcus aureus (MRSA) Laterality: bilateral Lung location: lower lobe of lung Qualified Code(s): J15.212 - Pneumonia due to Methicillin resistant Staphylococcus aureus (3) Cough Current Visit: Yes Status: Acute Assessment and plan: Patient has a periodic, productive cough with white colored sputum. -Possibly secondary to smoking. -Patient states he has had this cough for many years. -Sputum culture has been obtained. - Subjective Interval history: Patient was seen and examined at bedside this morning. He states that his pain in the right side of his chest has resolved. He states that the only time that he feels pain in his chest is when he has to get up to use the bathroom, but this pain still less than what it was yesterday. He is now able to take a full breath in without difficulty. He also states that his productive cough has subsided. He no longer feels pain in his right upper quadrant. He denies fever, chills, nausea, vomiting, diarrhea, shortness of breath, cough, and sputum production. - Constitutional Vitals: Temp Pulse Resp BP Pulse Ox 97.9 F 93 18 116/72 95 01/14/17 10:27 01/14/17 10:27 01/14/17 10:27 01/14/17 10:27 01/14/17 10:27 General appearance: Present: cooperative, A&O X 3, severe distress, underweight , answers questions appropriately - Head Head exam: Present: atraumatic, normocephalic - ENT ENT exam: Present: mucous membranes moist - Respiratory Respiratory exam: Present: CTAB. Absent: accessory muscle use, rales, rhonchi, wheezes - Cardiovascular Cardiovascular exam: Present: RRR, +S1, +S2. Absent: diastolic murmur, gallop, rubs, systolic murmur - GI/Abdominal GI/Abdominal exam: Present: normal bowel sounds, soft, no peritoneal signs. Absent: distended, tenderness - Psychiatric Psychiatric exam: Present: normal mood Internal Medicine: Result - Labs CBC & Chem 7: 01/14/17 03:15 01/14/17 03:15 Labs: Short CBC 01/14/17 Range/Units 03:15 WBC 21.1 H (4.3-11.1) K/mcL Hgb 10.3 L (12.9-16.9) g/dL Hct 31.1 L (37.5-50.1) % Plt Count 466 H (140-400) K/mcL Neutrophils # 17.5 H (1.6-8.9) K/mcL BMP 01/14/17 03:15 Sodium 135 L Potassium 3.5 Chloride 102 Carbon Dioxide 27 BUN 7 L Creatinine 0.60 L Glucose 91 Calcium 8.3 L - ABG Interpretation ABG results: ABG ABG pH 7.42 pH Units (7.32-7.45) 01/12/17 17:43 ABG pCO2 43 mmHg (35-45) 01/12/17 17:43 ABG pO2 67 mmHg (85-104) L 01/12/17 17:43 ABG O2 Saturation 93 % (95-98) L 01/12/17 17:43 PT/INR, D-dimer PT 13.9 Seconds (9.4-12.1) H 01/12/17 16:15 Consult Discharge Plan - Plan Referrals: NO,PCP [Primary Care Provider] - <Bryce Delcid - Last Filed: 01/14/17 14:18> Date of Encounter: 01/14/17 - Assessment and plan (1) Pneumonia Current Visit: Yes Status: Suspected Qualifiers: Pneumonia type: due to methicillin-resistant Staphylococcus aureus (MRSA) Laterality: bilateral Lung location: lower lobe of lung Qualified Code(s): J15.212 - Pneumonia due to Methicillin resistant Staphylococcus aureus (2) Sepsis Current Visit: Yes Status: Resolved Qualifiers: Sepsis type: sepsis due to unspecified organism Qualified Code(s): A41.9 - Sepsis, unspecified organism (3) Abdominal pain Current Visit: Yes Status: Resolved Qualifiers: Abdominal location: right upper quadrant Qualified Code(s): R10.11 - Right upper quadrant pain (4) Hypokalemia Current Visit: Yes Status: Acute (5) Neutrophilic leukocytosis Current Visit: Yes Status: Acute Assessment and plan: Related to acute infection. (6) Tobacco abuse Current Visit: Yes Status: Chronic (7) Anemia Current Visit: Yes Status: Chronic Qualifiers: Other causes of anemia: chronic disease, other Qualified Code(s): D63.8 - Anemia in other chronic diseases classified elsewhere - Constitutional Vitals: Temp Pulse Resp BP Pulse Ox 97.9 F 93 18 116/72 96 01/14/17 10:27 01/14/17 10:27 01/14/17 11:12 01/14/17 10:27 01/14/17 11:12 Internal Medicine: Result - Labs CBC & Chem 7: 01/14/17 03:15 01/14/17 03:15 Labs: Short CBC 01/14/17 Range/Units 03:15 WBC 21.1 H (4.3-11.1) K/mcL Hgb 10.3 L (12.9-16.9) g/dL Hct 31.1 L (37.5-50.1) % Plt Count 466 H (140-400) K/mcL Neutrophils # 17.5 H (1.6-8.9) K/mcL BMP 01/14/17 03:15 Sodium 135 L Potassium 3.5 Chloride 102 Carbon Dioxide 27 BUN 7 L Creatinine 0.60 L Glucose 91 Calcium 8.3 L - ABG Interpretation ABG results: ABG ABG pH 7.42 pH Units (7.32-7.45) 01/12/17 17:43 ABG pCO2 43 mmHg (35-45) 01/12/17 17:43 ABG pO2 67 mmHg (85-104) L 01/12/17 17:43 ABG O2 Saturation 93 % (95-98) L 01/12/17 17:43 PT/INR, D-dimer PT 13.9 Seconds (9.4-12.1) H 01/12/17 16:15 - Attending Attestation I examined this patient and my medical decision-making was reviewed with the Resident Physician on 01/14/17. I agree with the documented findings, disposition and treatment plan as described except to the extent set forth below. Mr. Cm is currently admitted for acute bilateral pneumonia and sepsis. He is moderate to high risk due to potential for worsening respiratory status. Mr. Cm is starting to feel better. He has less cough and sputum today. No fever or chills. No pain today. Has some loose stools he feels is from abx. No blood in stool noted. Exam Alert. Comfortable Mucus membranes dry Heart reg- not tachy today Lungs with diminished bases and occ rales Abd soft and nontender No edema I/P 1. Pneumonia 2. Smoker Further diagnoses and plan as above.
[2017-01-14] MEDS ORDERED: Vancomycin 750 MG in D5% in Water 250 ML IVPB SCH (15:00)
[2017-01-14] MEDS: Vancomycin 750 MG in D5% in Water 250 ML IVPB SCH (16:02)
[2017-01-14] MEDS: Azithromycin 500 MG in D5% in Water 250 ML IVPB SCH (16:03)
[2017-01-15] MEDS: Ipratropium/Albuterol Neb 3 ML IH SCH ×4 (04:03→15:58)
[2017-01-15] MEDS: Vancomycin 750 MG in D5% in Water 250 ML IVPB SCH ×2 (04:20→15:20)
[2017-01-15] MEDS: 0.9 % Sodium Chloride 1,000 ML IVC SCH ×2 (04:20→13:08)
[2017-01-15 04:37] LABS: Basophils % 0.2 %; Eosinophils # 0.1 K/mcL (0.0-0.6); Eosinophils % 0.3 %; Hematocrit 29.5 % (37.5-50.1); Immature Granulocytes % 0.3 % (0-4); Lymphocytes # 2.2 K/mcL (0.6-4.6); Lymphocytes % 12.8 %; Mean Corpuscular HGB Conc 33.9 g/dL (31.6-35.5); Mean Corpuscular Hemoglobin 29.6 pg (28.0-33.3); Mean Corpuscular Volume 87.3 fL (83.0-100.0); Mean Platelet Volume 9.6 fL (9.4-12.4); Monocytes # 1.1 K/mcL (0.0-1.3); Monocytes % 6.3 %; Neutrophils # 13.9 K/mcL (1.6-8.9); Platelet Count 506 K/mcL (140-400); Red Blood Count 3.38 M/mcL (4.19-5.50); Red Cell Distribution Width 13.3 % (11.5-14.5); Segmented Neutrophils % 80.1 %
[2017-01-15 04:41] LABS: BUN/Creatinine Ratio 14 (6-26); Blood Urea Nitrogen 8 mg/dL (8-26); Calcium 7.5 mg/dL (8.6-10.8); Carbon Dioxide 26 mEq/L (19-29); Chloride 102 mEq/L (98-109); Glucose 102 mg/dL (70-99); Osmolality,Calculated 281 (280-300); Sodium 136 mEq/L (136-145); eGFR For African Americans > 60 (> 60); eGFR For Non-African Americans > 60 (> 60)
[2017-01-15] MEDS: *HR* Heparin 5,000 UNIT/ML VIAL SQ SCH ×2 (05:53→13:08)
[2017-01-15] MEDS: Nicotine 21 MG PATCH.TD24 TD SCH (08:57)
--- NOTE | 2017-01-15 09:17 | Internal Med Progress Note ---
<Nathen Meyer - Last Filed: 01/15/17 09:15> Date of Encounter: 01/15/17 Time of Encounter: 09:10 - Assessment and plan (1) Sepsis Current Visit: Yes Status: Resolved Assessment and plan: Upon presentation to the hospital, patient was tachycardic and had an elevated white count but no fever. -Patient was placed on broad-spectrum antibiotics. -White count has decreased to 17.3, still remains high. White count was 22.6 on admission -Vital signs are all stable. Temperature is 98.6, blood pressure is 131/82, and pulse is 85. -We will continue antibiotics. Qualifiers: Sepsis type: sepsis due to unspecified organism Qualified Code(s): A41.9 - Sepsis, unspecified organism (2) Pneumonia Current Visit: Yes Status: Suspected Assessment and plan: Abx adjusted today. Follow clinically. Qualifiers: Pneumonia type: due to methicillin-resistant Staphylococcus aureus (MRSA) Laterality: bilateral Lung location: lower lobe of lung Qualified Code(s): J15.212 - Pneumonia due to Methicillin resistant Staphylococcus aureus (3) Cough Current Visit: Yes Status: Acute Assessment and plan: Patient has a periodic, productive cough with white colored sputum. -Possibly secondary to smoking. -Patient states he has had this cough for many years. -Sputum culture has been obtained. -Cough was minimal this morning. (4) Hypokalemia Current Visit: Yes Status: Acute Assessment and plan: Replace and recheck. Will give potassium supplement. - Subjective Interval history: Patient was seen and examined at bedside this morning. Patient states that he is feeling much better today. He states that the pain that he had on inspiration on the right side of his chest has completely resolved. He no longer has any pain on inspiration when he exerts himself. He does not have any pain in his right upper quadrant. He denies fever, chills, nausea, vomiting , diarrhea, shortness of breath, cough, and sputum production. - Constitutional Vitals: Temp Pulse Resp BP Pulse Ox 97.7 F 74 18 105/71 94 01/15/17 08:55 01/15/17 08:55 01/15/17 08:55 01/15/17 08:55 01/15/17 09:03 General appearance: Present: cooperative, A&O X 3, severe distress, underweight , answers questions appropriately - ENT ENT exam: Present: mucous membranes moist - Respiratory Respiratory exam: Present: CTAB. Absent: accessory muscle use, rales, rhonchi, wheezes - Cardiovascular Cardiovascular exam: Present: RRR, +S1, +S2. Absent: diastolic murmur, gallop, rubs, systolic murmur - GI/Abdominal GI/Abdominal exam: Present: normal bowel sounds, soft, no peritoneal signs. Absent: distended, tenderness - Psychiatric Psychiatric exam: Present: normal affect, normal mood Internal Medicine: Result - Labs CBC & Chem 7: 01/15/17 03:48 01/15/17 03:48 Labs: Short CBC 01/15/17 Range/Units 03:48 WBC 17.3 H (4.3-11.1) K/mcL Hgb 10.0 L (12.9-16.9) g/dL Hct 29.5 L (37.5-50.1) % Plt Count 506 H (140-400) K/mcL Neutrophils # 13.9 H (1.6-8.9) K/mcL BMP 01/15/17 03:48 Sodium 136 Potassium 3.0 L Chloride 102 Carbon Dioxide 26 BUN 8 Creatinine 0.59 L Glucose 102 H Calcium 7.5 L - ABG Interpretation ABG results: ABG ABG pH 7.42 pH Units (7.32-7.45) 01/12/17 17:43 ABG pCO2 43 mmHg (35-45) 01/12/17 17:43 ABG pO2 67 mmHg (85-104) L 01/12/17 17:43 ABG O2 Saturation 93 % (95-98) L 01/12/17 17:43 PT/INR, D-dimer PT 13.9 Seconds (9.4-12.1) H 01/12/17 16:15 - Impressions Impressions Chest CT 01/12/17 19:52 IMPRESSION: 1. Large areas of bilateral lower lobe consolidation with small central cystic spaces and lucencies. Findings are worrisome for multifocal pneumonia with possible pulmonary necrosis versus tiny abscesses. 2. Small to moderate loculated right pleural effusion. 3. Reactive mediastinal lymphadenopathy. 4. Age-indeterminate mild wedging of the superior endplate of the T4 vertebral body. D/ / 01/12/2017 22:25:35 Erich Foley MD / ольга Interpreting Provider: Erich Foley MD Consult Discharge Plan - Plan Instructions: Pneumonia (DC) Additional Instructions: Please take 12 more days of doxycycline (100 mg twice a day) and cefdinir (300 mg twice a day) to finish total 14-day course of antibiotic therapy for your pneumonia. Please follow up with scheduled physician regarding your hospitalization. Please get ordered chest CT scan done at [facility] in 6 weeks (around ) Referrals: Rudi Sandoval MD [Non-Partnered Physician] - (Patient is moving to [place] close to [place] and will find a pcp when go home..) Prescriptions: Cefdinir [Omnicef] 300 mg PO BID #24 capsule Doxycycline 100 mg PO BID #24 capsule <Bryce Delcid - Last Filed: 01/15/17 18:13> Date of Encounter: 01/15/17 - Assessment and plan (1) Pneumonia Current Visit: Yes Status: Suspected Qualifiers: Qualified Code(s): J15.212 - Pneumonia due to Methicillin resistant Staphylococcus aureus (2) Sepsis Current Visit: Yes Status: Resolved Qualifiers: Qualified Code(s): A41.9 - Sepsis, unspecified organism (3) Abdominal pain Current Visit: Yes Status: Resolved Qualifiers: Qualified Code(s): R10.11 - Right upper quadrant pain (4) Hypokalemia Current Visit: Yes Status: Acute (5) Neutrophilic leukocytosis Current Visit: Yes Status: Acute (6) Tobacco abuse Current Visit: Yes Status: Chronic (7) Anemia Current Visit: Yes Status: Chronic Qualifiers: Qualified Code(s): D63.8 - Anemia in other chronic diseases classified elsewhere - Constitutional Vitals: Temp Pulse Resp BP Pulse Ox 98.5 F 76 18 136/88 96 01/15/17 17:00 01/15/17 17:00 01/15/17 17:00 01/15/17 17:00 01/15/17 16:00 Internal Medicine: Result - Labs CBC & Chem 7: 01/15/17 03:48 01/15/17 03:48 Labs: Short CBC 01/15/17 Range/Units 03:48 WBC 17.3 H (4.3-11.1) K/mcL Hgb 10.0 L (12.9-16.9) g/dL Hct 29.5 L (37.5-50.1) % Plt Count 506 H (140-400) K/mcL Neutrophils # 13.9 H (1.6-8.9) K/mcL BMP 01/15/17 03:48 Sodium 136 Potassium 3.0 L Chloride 102 Carbon Dioxide 26 BUN 8 Creatinine 0.59 L Glucose 102 H Calcium 7.5 L - ABG Interpretation ABG results: ABG ABG pH 7.42 pH Units (7.32-7.45) 01/12/17 17:43 ABG pCO2 43 mmHg (35-45) 01/12/17 17:43 ABG pO2 67 mmHg (85-104) L 01/12/17 17:43 ABG O2 Saturation 93 % (95-98) L 01/12/17 17:43 PT/INR, D-dimer PT 13.9 Seconds (9.4-12.1) H 01/12/17 16:15 - Impressions Impressions Chest CT 01/12/17 19:52 IMPRESSION: 1. Large areas of bilateral lower lobe consolidation with small central cystic spaces and lucencies. Findings are worrisome for multifocal pneumonia with possible pulmonary necrosis versus tiny abscesses. 2. Small to moderate loculated right pleural effusion. 3. Reactive mediastinal lymphadenopathy. 4. Age-indeterminate mild wedging of the superior endplate of the T4 vertebral body. D/ / 01/12/2017 22:25:35 Erich Foley MD / bcarter Interpreting Provider: Erich Foley MD - Attending Attestation Please see discharge summary of same date.
--- NOTE | 2017-01-15 09:37 | Electrocardiograph Report ---
[place] [id number] Test Date: 2017-01-12 Pat Name: Larry Cm Department: 102 Room: 2A24 Gender: M Estimator Project Manager: Kathy : 1965 Requested By: Kobe Shore Order Number: [id number] Reading MD: Conrado Ruiz MD Measurements Intervals [place] Rate: 104 P: 66 IN: 119 QRS: 95 QRSD: 108 T: 25 QT: 331 QTc: 392 Interpretive Statements SINUS TACHYCARDIA WITH SHORT IN INTERVAL LEFT ATRIAL ENLARGEMENT BORDERLINE RIGHT AXIS DEVIATION INCOMPLETE RIGHT BUNDLE BRANCH BLOCK Electronically Signed On 01-15-2017 9:36:02 EDT by Conrado Ruiz MD
[2017-01-15] MEDS ORDERED: *HR* HYDROcodone/Acet 5/325 mg TABLET PO PRN (09:45)
[2017-01-15 17:03] VITALS: BP 136/88
--- NOTE | 2017-01-15 17:45 | Discharge Summary ---
<Long Downs - Last Filed: 01/15/17 18:06> Date of Encounter: 01/15/17 Time of Encounter: 17:00 - Discharge Diagnosis (1) Sepsis Priority: Secondary Status: Resolved Qualifiers: Sepsis type: sepsis due to unspecified organism Qualified Code(s): A41.9 - Sepsis, unspecified organism (2) Pneumonia Priority: Primary Status: Acute Qualifiers: Pneumonia type: due to unspecified organism Laterality: bilateral Lung location: lower lobe of lung Qualified Code(s): J18.9 - Pneumonia, unspecified organism (3) Hypokalemia Priority: Secondary Status: Acute (4) Anemia Priority: Secondary Status: Chronic Qualifiers: Anemia type: other cause Other causes of anemia: other cause, not classified Qualified Code(s): D64.89 - Other specified anemias - Discharge Medications Prescriptions: Cefdinir [Omnicef] 300 mg PO BID #24 capsule Doxycycline 100 mg PO BID #24 capsule Home Medications: Cefdinir [Omnicef] 300 mg PO BID #24 capsule 01/15/17 [Rx] Doxycycline 100 mg PO BID #24 capsule 01/15/17 [Rx] Allergies/Adverse Reactions: Allergies No Known Allergies Allergy (Verified 01/12/17 14:46) Procedures/tests Complete & Pending: Procedures Performed prior 72 hours Category Date Time Status CT chest with contrast [CT chest w con] [CT] Stat Cat Scan 01/12/17 19:52 Completed EKG [ECG 12 lead ECG] [ECG] AM 0600 Y 01/13/17 06:00 Ordered Venous Doppler [EV venous imaging LE BI] Routine Y 01/12/17 18:23 Completed Date of admission: 01/12/17 17:07 Primary care physician: PCP NO Consults: 01/13/17 17:15 Consult to Respiratory Therapy [CONS] Routine Reason for Consult: Need induced sputum culture. Call Completed: Yes 01/15/17 13:02 Consult to Pulmonology [CONS] Routine Consulting Provider: [facility] Reason for Consult: Necrotizing pneumonia per CT scan of chest. May need bronchoscopy. Call Completed: Yes Discharging clinician: Long Downs Anticipated date of discharge: 01/15/17 - Patient Status Disposition: Home, Self-Care Condition: Good Functional capacity at discharge: independent ambulation Overall status at discharge: patient is progressing back to baseline - Ambulatory Orders Ambulatory Orders: CT chest wo con [CT] Time Frame: 6 Weeks, Facility: [facility], Location: Radiology - Discharge Instructions Instructions: Pneumonia (DC) Follow Up With: Rudi Sandoval MD [Non-Partnered Physician] - (Patient is moving to [place] close to [place] and will find a pcp when go home..) Additional Instructions: Please take 12 more days of doxycycline (100 mg twice a day) and cefdinir (300 mg twice a day) to finish total 14-day course of antibiotic therapy for your pneumonia. Please follow up with scheduled physician regarding your hospitalization. Please get ordered chest CT scan done at [facility] in 6 weeks (around ) - Diet and Activity Activity: increase activity as tolerated Diet: advance to your usual diet Hospital course: Mr. Cm is a 51 year old male with signficant smoking history who presented with complaint of worsening RUQ abd/flank pain for 3 days along with productive cough with yellow sputum. Patient was noted to have leukocytosis ( 22.6) and tachycardia (122) in ED. CT chest/abdomen/pelvis found significant bilateral lower lobe consolidation with probable right lower lobe central necrosis. Vascular doppler is negative for the questionable right common femoral vein DVT shown on the CT. Patient was admitted on 01/12/17 for sepsis secondary to pneumonia and started on IV ceftriaxone and azithromycin. Vancomycin was later added for the concern of MRSA. Two sputum samples (one is induced sputum) were collected but both do not meet acceptability criteria for culture. Negative urine antigens for Legionella and Strept. pneumoniae. Negative respiratory infection panel. Blood cultures from 01/12/17 are no growth to date upon discharge. Negative for viral hepatitis and HIV. Patient's right flank pain and productive cough significantly improve since admission. Pulmonology was consulted for possible bronoscopy to further investigation ( e.g. getting sample for culture) but patient declines and likes to go home.Given patient improves clinically, remains hemodynamically stable and desires to go home, patient will be discharged home with 12 more days of doxycycline (100 mg twice a day) and cefdinir (300 mg twice a day) to finish total 14-day course of antibiotic therapy for your pneumonia. Patient is instructed to get ordered chest CT scan done at [facility] in 6 weeks ( around 02/26/17) as follow-up regarding his pneumonia. Patient is also recommended to follow up with a PCP within a week. Patient verbalized his understanding and agreed with the discharge plan. All questions answered. Patient will be discharged home after getting his home antibiotics. - Time Spent with Patient Total time spent providing and/or coordinating discharge services: Greater than 30 minutes - Constitutional Vitals: Temp Pulse Resp BP Pulse Ox 98.5 F 76 18 136/88 96 01/15/17 17:00 01/15/17 17:00 01/15/17 17:00 01/15/17 17:00 01/15/17 16:00 General appearance: Present: cooperative, A&O X 3, severe distress, underweight , answers questions appropriately - Head Head exam: Present: atraumatic, normocephalic - Eye Eye exam: Present: EOMI, PERRL, conjuntiva pink, sclera anicteric - Neck Neck exam general surgery: Present: supple, trachea midline - Respiratory Respiratory exam: Present: rhonchi. Absent: accessory muscle use, chest wall tenderness, rales, wheezes - Cardiovascular Cardiovascular exam: Present: RRR, +S1, +S2. Absent: diastolic murmur, gallop, rubs, systolic murmur - GI/Abdominal GI/Abdominal exam: Present: normal bowel sounds, soft, no peritoneal signs. Absent: distended, tenderness - Extremities Exam Extremities exam: Present: warm, radial pulses palpable and symetrical. Absent : calf tenderness, cyanotic, pedal edema - Neurological Exam Neurological exam: Present: oriented X3, no focal deficits. Absent: pronater drift, facial droop, speech deficit - Skin Skin exam: Present: dry, intact, warm <Bryce Delcid - Last Filed: 01/15/17 19:44> Date of Encounter: 01/15/17 - Discharge Diagnosis (1) Pneumonia Status: Acute Qualifiers: Pneumonia type: due to unspecified organism Laterality: bilateral Lung location: lower lobe of lung Qualified Code(s): J18.9 - Pneumonia, unspecified organism (2) Sepsis Status: Resolved Qualifiers: Sepsis type: sepsis due to unspecified organism Qualified Code(s): A41.9 - Sepsis, unspecified organism (3) Abdominal pain Priority: Secondary Status: Resolved Qualifiers: Abdominal location: right upper quadrant Qualified Code(s): R10.11 - Right upper quadrant pain (4) Hypokalemia Status: Acute (5) Neutrophilic leukocytosis Priority: Secondary Status: Acute (6) Tobacco abuse Priority: Secondary Status: Chronic (7) Anemia Status: Chronic Qualifiers: Anemia type: other cause Other causes of anemia: other cause, not classified Qualified Code(s): D64.89 - Other specified anemias Procedures/tests Complete & Pending: Procedures Performed prior 72 hours Category Date Time Status CT chest with contrast [CT chest w con] [CT] Stat Cat Scan 01/12/17 19:52 Completed EKG [ECG 12 lead ECG] [ECG] AM 0600 Y 01/13/17 06:00 Ordered Date of admission: 01/12/17 17:07 Primary care physician: PCP NO Consults: 01/13/17 17:15 Consult to Respiratory Therapy [CONS] Routine Reason for Consult: Need induced sputum culture. Call Completed: Yes 01/15/17 13:02 Consult to Pulmonology [CONS] Routine Consulting Provider: [facility] Reason for Consult: Necrotizing pneumonia per CT scan of chest. May need bronchoscopy. Call Completed: Yes Hospital course: Mr. Cm is a 51 year old male - Time Spent with Patient Total time spent providing and/or coordinating discharge services: 41min - Constitutional Vitals: Temp Pulse Resp BP Pulse Ox 98.5 F 76 18 136/88 96 01/15/17 17:00 01/15/17 17:00 01/15/17 17:00 01/15/17 17:00 01/15/17 16:00 - Attending Attestation I examined this patient and my medical decision-making was reviewed with the Resident Physician on 01/15/17. I agree with the documented findings, disposition and treatment plan as described except to the extent set forth below. Mr. Cm feels much better. Does not want bronch. No fever or chills. No cough now. Wants to go home. Exam Alert. Comfortable Heart reg Lungs diminished No edema Plan D/C today on PO abx. CT in 6 weeks Follow up with PCP.
[2017-01-15] MEDS: Azithromycin 500 MG in D5% in Water 250 ML IVPB SCH (17:54)
--- NOTE | 2017-01-15 18:12 | Pulmonology Consult Note ---
Date of Encounter: 01/15/17 Time of Encounter: 17:30 History of Present Illness Consult date: 01/15/17 Requesting physician: Bryce Delcid Reason for consult: pneumonia, pleural effusion Chief complaint: Abdominal pain History of present illness: This is a pleasant 51-year-old male with chief complaint of abdominal pain, which has resolved. Patient was found to have bilateral pneumonia with loculated effusion and leukocytosis. Patient has been improving with current treatment of antibiotics and he is very anxious to go home. Patient has significant history of smoking with at least one pack per day. Patient feels his symptoms of cough and sputum has improved. He denies any significant shortness of breath and had some wheezing. Denies any sick contact or history of TB. At this time patient is wanting to go home. For that reason history overall is limited. Past Med Surg Social Fam HX - Past Medical History Medical history: no medical history Psychiatric history: no psych history - Past Surgical History Surgical History: orthopedic, other (Right hand, back surgery) - Social History Smoking Status: Current every day smoker Packs per day: 1 PPD Smokeless Tobacco Status: No Alcohol use: none Drug use: none Medications and Allergies Cefdinir [Omnicef] 300 mg PO BID #24 capsule 01/15/17 [Rx] Doxycycline 100 mg PO BID #24 capsule 01/15/17 [Rx] Allergies No Known Allergies Allergy (Verified 01/12/17 14:46) All Systems: A 10-system review of systems was performed and is negative for pertinent findings except as documented above in the HPI. Physical Examination Vital Signs: Vital Signs, Last 4 Hours Temp Pulse Resp BP Pulse Ox 01/15/17 17:00 98.5 F 76 18 136/88 01/15/17 16:00 16 96 General appearance: appears uncomfortable (Because he wants to go home) Eyes: nonicteric ENT: oropharynx moist Neck: supple, no lymphadenopathy Effort: normal Inspection: hyperextended Auscultation: bilateral: rhonchi Percussion: left: not dull, right: dull Cardiovascular: regular rate and rhythm Gastrointestinal: normoactive bowel sounds, non-distended Extremities: no cyanosis, no edema normal mental status, non-focal exam anxious (Because he wants to go home) Results - Laboratory Findings CBC and BMP: 01/15/17 03:48 01/15/17 03:48 ABG ABG pH 7.42 pH Units (7.32-7.45) 01/12/17 17:43 ABG pCO2 43 mmHg (35-45) 01/12/17 17:43 ABG pO2 67 mmHg (85-104) L 01/12/17 17:43 ABG O2 Saturation 93 % (95-98) L 01/12/17 17:43 PT/INR, D-dimer PT 13.9 Seconds (9.4-12.1) H 01/12/17 16:15 Abnormal lab findings: Abnormal lab results WBC 17.3 K/mcL (4.3-11.1) H 01/15/17 03:48 RBC 3.38 M/mcL (4.19-5.50) L 01/15/17 03:48 Hgb 10.0 g/dL (12.9-16.9) L 01/15/17 03:48 Hct 29.5 % (37.5-50.1) L 01/15/17 03:48 Plt Count 506 K/mcL (140-400) H 01/15/17 03:48 Neutrophils # 13.9 K/mcL (1.6-8.9) H 01/15/17 03:48 PT 13.9 Seconds (9.4-12.1) H 01/12/17 16:15 ABG pO2 67 mmHg (85-104) L 01/12/17 17:43 ABG HCO3 27.9 mEQ/L (21-27) H 01/12/17 17:43 ABG Total CO2 29.2 mEq/L (20-26) H 01/12/17 17:43 ABG O2 Saturation 93 % (95-98) L 01/12/17 17:43 Potassium 3.0 mEq/L (3.5-4.5) L 01/15/17 03:48 Creatinine 0.59 mg/dL (0.72-1.25) L 01/15/17 03:48 Glucose 102 mg/dL (70-99) H 01/15/17 03:48 POC Glucose 153 (58-89) H 01/15/17 11:19 Calcium 7.5 mg/dL (8.6-10.8) L 01/15/17 03:48 Magnesium 1.5 mg/dL (1.6-2.6) L 01/12/17 16:24 Albumin 2.4 g/dL (3.5-5.0) L 01/12/17 15:09 Globulin 5.4 g/dL (2.4-3.5) H 01/12/17 15:09 Albumin/Globulin Ratio 0.4 (1.1-2.2) L 01/12/17 15:09 Urine Blood Small (Negative) H 01/12/17 18:22 Urine Opiates Screen Positive ng/mL (Vhmntx=937) H 01/12/17 21:00 - Microbiology Findings Microbiology Findings: Microbiology, Last 48 Hours 01/13/17 13:20 Sputum Culture - Final Sputum - Diagnostic Findings CT scan - chest: report reviewed, image reviewed - Clinical Findings Intake & Output: Intake & Output 01/15/17 01/15/17 01/15/17 07:59 15:59 23:59 Intake Total 1250 / 1250 1860 / 1860 490 / 490 Balance 1250 / 1250 1860 / 1860 490 / 490 Weight 49.8 kg Consult Discharge Plan - Plan Instructions: Pneumonia (DC) Additional Instructions: Please take 12 more days of doxycycline (100 mg twice a day) and cefdinir (300 mg twice a day) to finish total 14-day course of antibiotic therapy for your pneumonia. Please follow up with scheduled physician regarding your hospitalization. Please get ordered chest CT scan done at [facility] in 6 weeks (around ) Referrals: Rudi Sandoval MD [Non-Partnered Physician] - (Patient is moving to [place] close to [place] and will find a pcp when go home..) Prescriptions: Cefdinir [Omnicef] 300 mg PO BID #24 capsule Doxycycline 100 mg PO BID #24 capsule - Attending Attestation Assessment and plan: Patient with multifocal pneumonia with loculated pleural effusion and clinically is improving. I have offered patient in the presence of the nurse bronchoscopy for de-escalation of antibiotics and also to understand better what type of microorganism that could be a reason for his pneumonia and parapneumonic effusion and even empyema, but patient really wants to go home and he declined and the bronchoscopy. Patient wants to follow-up as outpatient and repeating CT chest in about 6 weeks and then follow-up as outpatient is recommended and this is discussed with his primary team. I suspect also patient has emphysema from a CT chest findings and also a strong history of smoking and bronchodilators as well as outpatient pulmonary function test after he recovers from his pneumonia is recommended. Patient was counseled about smoking cessation. Thank you very much for the consultation
[2017-01-15] MEDS ORDERED: Aminoglycoside Consult 1 EACH MC ONE (18:50)
== END 2017-01-15 18:51 | disposition home or self-care (01) | DRG 720 ==
LOC: EMEROO 14:31 → 2ANU 14:31
PROVIDERS: ADMIT Internal Medicine; ATTEND Internal Medicine